=== PATIENT | female | born 1990 | race Caucasian/White ===

== ENCOUNTER 2021-03-15 01:20 | Emergency (ER) | payer OTHER ==
[~2021-03-15] VITALS: Ht 160 cm; Wt 61.2 kg
[2021-03-15 01:20] VITALS: BP 148/89
--- NOTE | 2021-03-15 01:20 | NUR ---
BIBA 31 Y/ FEMALE WITH C/O OF ANXIETY. PT. IS VERY AGITATED, RESTLESS, AND AMBULATING AROUND THE ER REFUSING TO STAY ON GURNEY. PT. IS SCREAMING AND UNCOOPERATIVE. PT. ENCOURAGED TO STAY IN BED MULTIPLE TIMES BUT REFUSES. PT. IS ARGUING WITH STAFF AND REFUSING CARE. PMH: UNKNOWN ALLERGIES: PSEUDOEPHEDRINE
--- NOTE | 2021-03-15 01:35 | NUR ---
BIBA TO ER BED 7
[2021-03-15] MEDS ORDERED: diphenhydrAMINE 50 MG/ML VIAL ONE (01:43)
[2021-03-15] MEDS ORDERED: LORazepam 2 MG/ML VIAL ONE (01:43)
[2021-03-15] MEDS ORDERED: HALOPERIDOL IM 5 MG/ML VIAL ONE (01:43)
--- NOTE | 2021-03-15 01:50 | NUR ---
Patient being evaluated by physician at bedside.
[2021-03-15] MEDS: diphenhydrAMINE 50 MG/ML VIAL IM ONE (02:09)
[2021-03-15] MEDS: HALOPERIDOL IM 5 MG/ML VIAL IM ONE (02:10)
[2021-03-15] MEDS: LORazepam 2 MG/ML VIAL IM/IVP ONE (02:11)
--- NOTE | 2021-03-15 02:20 | NUR ---
PT. ACTING CALM, AND ACTING APPROPRIATE. PT. WAS D/C OFF RESTRAINTS.
--- NOTE | 2021-03-15 03:10 | NUR ---
LAB AT BEDSIDE
[2021-03-15 03:17] LABS: WHITE BLOOD COUNT (AUTO) 11.1 K/uL (4.8-10.8)
[2021-03-15 03:34] LABS: BASOPHILS # (AUTO) 0.1 K/uL (0.00-0.22); BASOPHILS % (AUTO) 0.5 % (0.0-2.0); EOSINOPHILS # (AUTO) 0.2 K/uL (0-0.4); EOSINOPHILS % (AUTO) 1.8 % (0.0-4.0); HEMATOCRIT 24.6 % (36-48); HEMOGLOBIN 7.8 g/dL (12.0-16.0); LYMPHOCYTES # (AUTO) 1.6 K/uL (2.5-16.5); LYMPHOCYTES % (AUTO) 14.4 % (20.5-51.1); MEAN CORPUSCULAR HEMOGLOBIN 23 pg (27-31); MEAN CORPUSCULAR HGB CONC 32 g/dL (33-37); MONOCYTES # (AUTO) 0.6 K/uL (0.8-1.0); MONOCYTES % (AUTO) 5.6 % (1.7-9.3); NEUTROPHILS # (AUTO) 8.6 K/uL (1.8-7.7); NEUTROPHILS % (AUTO) 77.7 % (42.2-75.2); PLATELET COUNT (AUTO) 501 K/uL (140-450); RED BLOOD CELL COUNT(AUTO) 3.42 MIL/uL (4.20-5.40); RED CELL DISTRIBUTION WIDTH 18.2 % (11.6-13.7)
[2021-03-15 03:55] LABS: ALBUMIN 3.1 g/dL (3.4-5.0); ANION GAP 14.6 (8-16); ASPARTATE AMINOTRANSFERASE 37 U/L (15-37); CHLORIDE 103 mmol/L (98-107); GFR ARICAN-AMERICAN 84 mL/min (>90); GLUCOSE 94 mg/dL (74-106); POTASSIUM 3.6 mmol/L (3.5-5.1); SODIUM SERUM 141 mmol/L (136-145); TOTAL BILIRUBIN 0.6 mg/dL (0.0-1.0); UREA NITROGEN, BLOOD 13 mg/dL (7-18)
[2021-03-15 03:59] LABS: SALICYLATE < 2.8 mg/dL (2.8-20.0)
[2021-03-15 06:29] LABS: ACETAMINOPHEN < 0.5 ug/ml (10-30)
--- NOTE | 2021-03-15 07:15 | NUR ---
REPORT RECEIVED FROM [facility] RN FOR CONTINUITY OF CARE
--- NOTE | 2021-03-15 07:43 | NUR ---
Patient has eyes closed, resting in bed. Vital Signs within normal limits. Respirations even and unlabored. Chest rise is symmetrical. Will continue to monitor.
--- NOTE | 2021-03-15 08:30 | NUR ---
PT AWAKE, AMBULATED TO RESTROOM, STEADY GAIT
[2021-03-15 09:10] VITALS: BP 148/89
--- NOTE | 2021-03-15 09:10 | NUR ---
Patient discharged with v/s stable. Written and verbal after care instructions given and explained. Patient verbalized understanding. Ambulatory with steady gait. All questions addressed prior to discharge. Advised to follow up with PMD.
== END 2021-03-15 09:10 | disposition home or self-care (01) ==
LOC: MED 01:20
DX: F29 Unspecified psychosis not due to a substance or known physiological condition (principal); D50.9 Iron deficiency anemia, unspecified; Z88.8 Allergy status to other drugs, medicaments and biological substances
CPT/HCPCS: 36415; 80053; 84702; 85025; 96372; 99284; G0480; G0482; J1200; J1630; J2060